=== PATIENT | male | born 1955 | race Caucasian/White ===

== ENCOUNTER → 2017-07-06 09:44 | Outpatient (CLI) | payer OTHER, SELFPAY ==
[2017-07-06 11:08] LABS: Add Manual Diff / Slide Review NO; Basophils Percent Auto 0.7 % (0-2); Eosinophils Percent Auto 3.2 % (2-4); Hematocrit 42.1 % (41-53); Hemoglobin 14.2 g/dL (13.5-17.5); Lymphocytes Percent Auto 29.9 % (25-40); Mean Corpuscular HGB Conc 33.8 % (30-36); Mean Corpuscular Hemoglobin 29.7 PG (26-34); Mean Corpuscular Volume 87.7 fL (80-100); Monocytes Percent Auto 6.1 % (3-14); Neutrophils Absolute Auto 4500 /uL (3000-5900); Neutrophils Percent Auto 60.1 % (50-75); Platelet Count 273 X10^3/uL (150-400); Red Cell Distribution Width 13.6 % (11.6-14.8); White Blood Cell Count 7.5 X10^3/uL (4.5-11.0)
[2017-07-06 12:08] LABS: Free T3, Triiodothyronine Free 3.68 pg/mL (2.77-5.27); Free T4, Direct Thyroxine 1.17 ng/dL (0.78-2.19)
[2017-07-06 12:21] LABS: Thyroid Stimulating Hormone 0.73 uIU/mL (0.47-4.68)
== END ==
PROVIDERS: Family Provider Family Medicine; PCP Family Medicine; Visit Provider Family Medicine
DX: E03.9 Hypothyroidism, unspecified (principal); R53.83 Other fatigue
CPT/HCPCS: 36415; 84439; 84443; 84481; 85025

== ENCOUNTER → 2017-10-27 16:45 | Outpatient (CLI) | payer OTHER, SELFPAY ==
--- NOTE | 2017-10-27 17:08 | DI.CT.S_ITS ---
PROCEDURE: CT ABDOMEN PELVIS W CON INDICATIONS: Abdominal pain/colitis TECHNIQUE: After the administration of oral and intravenous contrast, 5 mm thick sections acquired from the diaphragms to the symphysis. 5 mm thick coronal and sagittal reformats were performed. For radiation dose reduction, the following was used: automated exposure control, adjustment of mA and/or kV according to patient size. COMPARISON: None. FINDINGS: Image quality: Excellent. ABDOMEN: Lung bases: Lung bases are clear. Heart size is normal. Elevation of left hemidiaphragm is noted. Solid organs: Liver is normal in size. 5 mm subtle hypodense area is seen in right hepatic dome and is too small to characterize. Additional 4-5 mm hypodensity is also noted in more anterior and inferior aspect of right hepatic lobe. Gallbladder is surgically absent. Biliary system is non-dilated. Pancreas enhances normally. Spleen is normal in size and enhancement. No adrenal nodules. Kidneys are normal in size and enhancement, without hydronephrosis. Peritoneum and bowel: There is a small hiatal hernia. No evidence of bowel obstruction. No gross abnormal bowel wall thickening no mesenteric fat stranding is seen. No peritoneal free fluid or free air. Mild sigmoid diverticulosis is seen, no CT evidence of acute diverticulitis. Nodes and vessels: No retroperitoneal or mesenteric adenopathy. Aorta and inferior vena cava are normal in caliber. Miscellaneous: Small periumbilical hernia is seen containing fat only. PELVIS: Genitourinary: Bladder wall thickness is normal. Mildly enlarged prostate gland with mild mass effect of floor of urinary bladder is seen. Miscellaneous: There are bilaterally inguinal hernia containing fat only. No inguinal adenopathy. Bones: No suspicious bony lesions. No vertebral body compression fractures. Bilateral pars defect at L5 level is seen with grade 1 anterolisthesis of L5 on S1. Prior right transpedicular fusion at L5-S1 level is also noted. Degenerative disc disease throughout lumbar spine is seen. IMPRESSION: 1. No evidence of abnormal bowel wall thickening to suggest colitis. No bowel obstruction. No free fluid or free air. 2. Tiny 4-5 mm hypodensities in right hepatic lobe as above and are too small to characterize. Patient is status post cholecystectomy and lower lumbar spine fusion. 3. Bilateral inguinal hernia containing fat only. Small periumbilical hernia containing fat only. Dictated by: Prateek Prieto M.D. on 10/27/2017 at 18:43 Approved by: Prateek Prieto M.D. on 10/27/2017 at 18:47
[2017-10-27 17:13] LABS: Add Manual Diff / Slide Review NO; Basophils Percent Auto 0.9 % (0-2); Eosinophils Percent Auto 2.7 % (2-4); Hemoglobin 14.7 g/dL (13.5-17.5); Mean Corpuscular HGB Conc 33.5 % (30-36); Mean Corpuscular Hemoglobin 29.7 PG (26-34); Mean Corpuscular Volume 88.7 fL (80-100); Monocytes Percent Auto 7.3 % (3-14); Neutrophils Absolute Auto 5300 /uL (3000-5900); Neutrophils Percent Auto 61.1 % (50-75); Platelet Count 312 X10^3/uL (150-400); Red Blood Cell Count 4.96 X10^6/uL (4.5-5.9); Red Cell Distribution Width 13.6 % (11.6-14.8); White Blood Cell Count 8.7 X10^3/uL (4.5-11.0)
[2017-10-27 17:26] LABS: Alanine Aminotransferase 28 IU/L (21-72); Albumin 4.7 g/dL (3.5-5.0); Albumin Globulin Ratio 1.5 (1.0-2.8); Alkaline Phosphatase 72 U/L (38-126); Aspartate Aminotransferase 28 IU/L (17-59); BUN Creatinine Ratio 23.8 (6-22); Bilirubin Total 0.4 mg/dL (0.2-1.3); Blood Urea Nitrogen 19 mg/dL (9-20); Calcium 10.1 mg/dL (8.4-10.2); Carbon Dioxide 27 mmol/L (22-32); Chloride 102 mmol/L (98-107); Estimated Glomerular Filt Rate > 60.0 mL/min (>60); Globulin 3.1 g/dL (1.7-4.1); Glucose 93 mg/dL (80-110); HEMOLYSIS < 15 (0-50); Potassium 4.3 mmol/L (3.4-5.1); Sodium 138 mmol/L (137-145); Total Protein 7.8 g/dL (6.3-8.2)
[2017-10-27 17:27] LABS: Lipase 77 U/L (23-300)
== END ==
PROVIDERS: Family Provider Family Medicine; PCP Family Medicine; Visit Provider Family Medicine
DX: K57.92 Diverticulitis of intestine, part unspecified, without perforation or abscess without bleeding (principal); E03.9 Hypothyroidism, unspecified
CPT/HCPCS: 36415; 74177; 80053; 83690; 84443; 85025; Q9967

== ENCOUNTER → 2019-08-18 10:31 | Outpatient (CLI) | payer MEDICARE, SELFPAY ==
--- NOTE | 2019-08-23 09:11 | PM.PFT.1 ---
Pulmonary Function Test Referral & Results Date Patient Seen: 08/18/19 Requesting provider: Fernando Gates Results: The spirometry demonstrates an FVC of 2.56 L which is 53% of predicted. The FEV1 was measured at 1.70 L which is 47% of predicted. The FEV1/FVC ratio was 66 which is 88% of predicted. Following the administration of bronchodilator there was 15% improvement in FEV1 and a 98% improvement in FEF 25-75%. Lung volumes show an SVC of 2.62 L which is 54% of predicted. The diffusing capacity was measured at 22.60 which is 67% of predicted. The maximum voluntary ventilation was reduced Interpretation: This study demonstrates moderately severe obstructive lung disease based on reduction FEV1 and more minor reduction FEV1/FVC ratio. There is evidence of benefit following bronchodilator based on 15% improvement in FEV1 as well as a larger improvement in small airway flow based on improvement in FEF 25-75% There is also a moderate restrictive lung disease based on reduction SVC The reduction in diffusing capacity also suggest an element of disease at the capillary alveolar level Altogether this is consistent with a diagnosis of moderately severe COPD, clinical correlation suggested
== END ==
PROVIDERS: Family Provider Family Medicine; PCP Student in an Organized Health Care Education/Training Program; Referring Provider Student in an Organized Health Care Education/Training Program; Visit Provider Student in an Organized Health Care Education/Training Program
DX: R06.09 Other forms of dyspnea (principal); Z87.891 Personal history of nicotine dependence; J98.8 Other specified respiratory disorders
CPT/HCPCS: 94060; 94726; 94729

== ENCOUNTER → 2021-03-13 09:47 | Outpatient (CLI) | payer MEDICARE, SELFPAY | PROVIDERS: Family Provider Family Medicine; PCP Student in an Organized Health Care Education/Training Program; Referring Provider Student in an Organized Health Care Education/Training Program; Visit Provider Student in an Organized Health Care Education/Training Program | DX: R06.00 Dyspnea, unspecified (principal); Z53.8 Procedure and treatment not carried out for other reasons ==